=== PATIENT | female | born 1960 | race Caucasian/White ===

== ENCOUNTER 2025-05-26 08:50 | Day surgery (SDC) | payer BC, SELFPAY ==
[2025-05-26 08:55] VITALS: BMI 30.6
[2025-05-26 09:20] VITALS: BP 125/83; PULSE 71; RESP 16; TEMP 36.7; O2SAT 96
[2025-05-26] MEDS: LACTATED RINGERS 1000 ML 1,000 ML 100 ML IV ×2 (09:30→11:43)
[2025-05-26] MEDS: SODIUM CHLORIDE 0.9 % (FLUSH) 10 ML SYRINGE IVF (09:30)
[2025-05-26] MEDS: MIDAZOLAM HCL 1 MG/ML inj IVP (09:50)
--- NOTE | 2025-05-26 09:51 | SUR.PREOP ---
TIME?OUT:?0949 PT/RN/MDA?VERIFICATION?OF?SURGICAL?SITE,?PROCEDURE,?AND?CONSENT OBTAINED?PRIOR?TO?INVASIVE?PROCEDURE.
--- NOTE | 2025-05-26 10:10 | W.PM.NB ---
Nerve Block Nerve Block Time Seen by Provider: 09:55 Date Seen: 06/11/25 Type of block requested by surgeon for post-operative analgesia: popliteal Side: left Time out performed: Yes Verification of patient name: Yes Verification of date of : Yes Site marking: site marked Name of person performing procedure: Bar Continuous monitoring Was continuous monitoring of O2 sat, B/P, environmental monitoring specialist, recorded every 15 minutes?: Yes Procedure Checklist: sterile prep, needles and gloves Ultrasound guided. Images saved: Yes Medications given in 5ml increments after negative aspiration: Marcaine %: 0.25 mL: 15 Needle gauge: 20 and Exparel mL: 5 Patient tolerated procedure well: Yes Additional comments: Needle noted adjacent to nerve Block Charges Block Charge (with Pro Fee): Sciatic Nerve Use of Ultrasound Machine for Block: Yes- US Guidance/pain block
--- NOTE | 2025-05-26 10:11 | P.NB_ITS ---
Nerve Block Nerve Block Time Seen by Provider: 09:55 Date Seen: 05/26/25 Type of block requested by surgeon for post-operative analgesia: adductor canal Side: left Time out performed: Yes Verification of patient name: Yes Verification of date of : Yes Site marking: site marked Name of person performing procedure: Bar Continuous monitoring Was continuous monitoring of O2 sat, B/P, cardiac technologist, recorded every 15 minutes?: Yes Procedure Checklist: sterile prep, needles and gloves Ultrasound guided. Images saved: Yes Medications given in 5ml increments after negative aspiration: Marcaine %: 0.25 mL: 10 Needle gauge: 20 and Exparel mL: 5 Patient tolerated procedure well: Yes Block Charges Block Charge (with Pro Fee): Femoral Nerve Use of Ultrasound Machine for Block: Yes- US Guidance/pain block
[2025-05-26] MEDS: BUPIVACAINE 0.25% 30 ML INJECTION (10:15)
--- NOTE | 2025-05-26 13:33 | P.ANES_ITS ---
Anesthesia Charges Start Date/Time Anesthesia Start Date: 05/26/25 Anesthesia Start Time: 10:01 Stop Date/Time Anesthesia Stop Date: 05/26/25 Anesthesia Stop Time: 14:00 Coding CPT Codes CPT Codes: ANESTH LOWER LEG BONE SURG - 01191 ([id number]) P2 - PATIENT W/MILD SYST DISEASE, QK - GYNECOLOGIST 2-4 CNCRNT ANES PROC, QX - FIELD HORTICULTURAL SPECIALTY GROWER SVC W/ MD MED DIRECTION
--- NOTE | 2025-05-26 13:33 | W.ANESCHARGE ---
Anesthesia Charges Start Date/Time Anesthesia Start Date: 05/26/25 Anesthesia Start Time: 10:01 Stop Date/Time Anesthesia Stop Date: 05/26/25 Anesthesia Stop Time: 14:00 Coding CPT Codes CPT Codes: ANESTH LOWER LEG BONE SURG - 60968 ([id number]) P2 - PATIENT W/MILD SYST DISEASE, QK - AQUATICS INSTRUCTOR 2-4 CNCRNT ANES PROC, QX - CODING FILE CLERK SVC W/ MD MED DIRECTION
[2025-05-26 14:00] VITALS: BP 126/85; PULSE 75; RESP 16; TEMP 36.4; O2SAT 96
--- NOTE | 2025-05-26 14:02 | W.PODPROC_ITS ---
Date of Procedure: 05/26/25 Surgeon: Cordell Atwood DPM Pre-op Diagnosis: 1. 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 hallux valgus with bunion left foot Post-op Diagnosis: 1. 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 hallux valgus with bunion left foot Type of Procedure: 1. midfoot fusion of the 2nd and 3rd metatarsocuneiform joints left foot 2. Lapidus bunionectomy left 3. bone graft harvest left calcaneus Indications: patient is having ongoing problems and pain due to significant arthritic changes of the midfoot and bony deformity. She has elected to proceed with surgery. I reviewed the procedure, recovery, expectation potential complications. These include but not limited to: Poor wound healing, infection, under correction, over correction, nonunion, delayed union, hardware irritation or failure, nerve injury, complex regional pain syndrome, deep venous thrombosis, pulmonary embolism possible . She understands risks written consent was obtained. Site marked. All questions answered. Procedure Description: Anesthesia provided a abductor and popliteal block in same-day surgery. Patient brought the operating room placed supine Position operating table. Additional 20 mL of 0.25% Marcaine plain injected into the left foot. She was then prepped and draped in sterile fashion. Standard time-out protocol followed. Left foot was exsanguinated the tourniquet inflated. C-arm was utilized to identify the optimal location of bone graft harvest from the calcaneus. Linear incision was made and deepened down to the periosteum. K- wire was placed was a guide. Using a 10 mm trephined a through and through plug was removed in total. This was placed on the back table for later use. The wound was thoroughly irrigated with sterile saline. It was then packed with screw times and crush screw times. Subcutaneous tissues reapproximated 4-0 Monocryl and skin closed with 4-0 Prolene. Linear incision was then made over the 3rd metatarsal cuneiform joint. Incision was made through the skin subcutaneous tissues. Blunt dissection was then carefully taken down to the extensor retinaculum. Linear incision was made through the extensor retinaculum and the extensor tendons reflected. The joint capsule was then incised and the 3rd metatarsal cuneiform joint exposed. Significant bony spurring noted. A rongeur was used to remove the bony spur f rom this joint. We carried out dissection further medial exposing the 2nd metatarsal cuneiform joint and the extremely large bone spur over this joint as well. Rongeur was used to remove the spur area. Dorsomedial curvilinear incision was made over the 1st metatarsophalangeal joint extended up over the 1st metatarsal cuneiform joint dorsally. The incision was carried down through skin subcutaneous tissues. The fascia was incised. At the metatarsal cuneiform joint the extensor tendon was reflected laterally. Periosteal and capsular incision made and this tissue was reflected away from the 1st metatarsal cuneiform joint as well as extending over the 2nd metatarsal cuneiform joint to merge the 2 incisions. A ribbon retractor was then placed between the 2 incisions to protect the neurovascular structures. Using a power rasp the bony spurring was further removed from the dorsal aspect of the 1st 2nd 3rd metatarsal cuneiform joints. The area was thoroughly irrigated normal sterile saline. T-shaped capsular incision was then made at the 1st MPJ. Sagittal saw was used to resect the medial bony prominence. blunt dissection was carried down in the 1st intermetatarsal space and a standard lateral release was performed. The plantar lateral joint capsule, dorsal fibular sesamoidal ligaments and the adductor tendon released. A joint distractor was then applied to the 1st metatarsal cuneiform joint. Joint was distracted. Using an osteotome and curettes the cartilage in subchondral bone was removed. The area was irrigated normal sterile saline. The opposing fusion surfaces were then fenestrated with a 2.5 mm drill bit and fish-scaled with an osteotome. First metatarsal was then corrected in a triplane fashion and then fixated with a 4.3 mm headless screw from dorsal distal to proximal plantar. C-arm confirmed excellent position. Excellent compression across the fusion site noted. T- shaped plate was then applied dorsal medially with 3.5 mm locking screws x2 proximal and x1 distal an additional nonlocking screw distal. Wound was thoroughly irrigated with sterile saline. deep fascia was repaired with 4-0 Vicryl. The joint capsule was remodeled and repaired with 3-0 Vicryl. Subcutaneous tissues reapproximated 4-0 Monocryl skin closed with 4-0 Prolene. This point the tourniquet had 2 hours and was released And then reinflated after 30 minutes.. Using 8 mm troponin a plug was taken from the 2nd metatarsophalangeal joint. A plug was then also taken from the 3rd metatarsal phalangeal joint. Osteotome was used to fish scale the fusion sites. The calcaneal bone graft was split in 2 equal halves. Each was 1.2 cm in length. 1 grafts placed into the trephined hole in the 2nd MTCJ and 1 graft placed into the 3rd MTCJ. 20 mm x 15 mm stap le was then applied to the dorsal 2nd MTCJ and a 20 mm x 15 mm staple was applied to the 3rd MTCJ. wound was thoroughly irrigated with sterile saline. C-arm images confirmed excellent position. The fascia was reapproximated with 4-0 Vicryl. Subcutaneous tissues reapproximated 4-0 Monocryl and skin closed with 4-0 Prolene. Sterile dressing was then applied. She was placed in a well- padded cam boot. She is nonweightbearing. She was transferred from OR to same- day surgery with vital signs stable and vascular status intact. She is given both written and verbal postop instructions. She is given oxycodone for pain. To follow-up in clinic in 2 days. Anesthesia: MAC, regional and local Hemostasis: ankle Estimated blood loss (mL): 100 Provider Operated C-arm: C-arm fluoroscopy operated by Cordell Atwood DPM for left foot surgery. 70 C-arm spot images were obtained. Fluoroscopy time was 00.00.56. Implants: Arthrex 4.3 mm headless screw x1, Arthrex Lapidus plate x1, Arthrex 3.5 mm cortical screw nonlocking x1, Arthrex 3.5 mm cortical locking screw x3, 20 x 15 mm staple x2 Specimens: none sent Disposition: same day
[2025-05-26 14:15] VITALS: BP 93/56; PULSE 65; RESP 16; O2SAT 96
--- NOTE | 2025-05-26 14:24 | P.ANES_ITS ---
Anesthesia Charges Start Date/Time Anesthesia Start Date: 05/26/25 Anesthesia Start Time: 10:01 Stop Date/Time Anesthesia Stop Date: 05/26/25 Anesthesia Stop Time: 14:00 Coding CPT Codes CPT Codes: ANESTH LOWER LEG BONE SURG - 84905 ([id number]) P1 - NORMAL HEALTHY PATIENT, QX - CIRCULATOR VIVIANA W/ MED DIRECTION, QK - [employer] 2-4 CNCRNT ANES PROC
--- NOTE | 2025-05-26 14:24 | W.ANESCHARGE ---
Anesthesia Charges Start Date/Time Anesthesia Start Date: 05/26/25 Anesthesia Start Time: 10:01 Stop Date/Time Anesthesia Stop Date: 05/26/25 Anesthesia Stop Time: 14:00 Coding CPT Codes CPT Codes: ANESTH LOWER LEG BONE SURG - 86057 ([id number]) P1 - NORMAL HEALTHY PATIENT, QX - COIL WINDING SUPERVISOR VIVIANA W/ MED DIRECTION, QK - CASH ACCOUNTANT 2-4 CNCRNT ANES PROC
[2025-05-26 14:32] VITALS: BP 115/82; PULSE 73; RESP 16; O2SAT 97
--- NOTE | 2025-05-26 14:38 | SUR.PHASEII ---
Patient voided in commode upon return from the OR. Patient able to transfer herself. Patient tolerated ice water and apple juice.
[2025-05-26 14:45] VITALS: BP 122/89; PULSE 68; RESP 16; TEMP 36.9; O2SAT 97
--- NOTE | 2025-05-26 15:16 | SUR.PHASEII ---
Patient and daughter verbalized readiness to be discharged home, verbalized understanding of discharge instructions and who to contact if they havee questions or concerns.
== END 2025-05-26 14:58 | disposition home or self-care (01) ==
PROVIDERS: PCP Family Medicine; Visit Provider Podiatrist
PROC: (CPT 28292; principal; 2025-05-26 10:30)
PROC: (CPT 28740; 2025-05-26 10:30)
DX: M19.072 Primary osteoarthritis, left ankle and foot (principal); M20.12 Hallux valgus (acquired), left foot; M21.612 Bunion of left foot; M77.32 Calcaneal spur, left foot; G89.18 Other acute postprocedural pain
CPT/HCPCS: 28740; 28297; 20900; 01480; 64445; 64447; C1713; J0665; J0666; J0690; J1100; J2250; J2405; J2704; J3010; J7120